=== PATIENT | female | born 2005 | race Caucasian/White ===

== ENCOUNTER 2023-12-08 07:13 | Emergency (ER) | payer MEDICAID ==
[~2023-12-08] VITALS: Ht 160 cm; Wt 54.5 kg
[2023-12-08 07:24] VITALS: TEMP 97.9
[2023-12-08 07:33] LABS: COVID AG,FIA SOURCE NASAL SWAB
[2023-12-08 07:56] LABS: SARS-COV2 (COVID) ANTIGEN,FIA Negative (Negative)
[2023-12-08 07:57] LABS: INFLUENZA TYPE A NEGATIVE FOR TYPE A (NEGATIVE); INFLUENZA TYPE B NEGATIVE FOR TYPE B (NEGATIVE)
[2023-12-08 08:29] LABS: RAPID GROUP A STREP POSITIVE (NEGATIVE)
[2023-12-08] MEDS: DEXAMETHASONE SOD PHOS 4 MG/ML 5 ML VIAL IVP ONE (09:05)
[2023-12-08] MEDS: CefTRIAXone 1 GM/DEXTROSE 50 ML IV ONE (09:06)
[2023-12-08] MEDS: KETOROLAC TROMETHAMINE 30 MG/ML VIAL IVP ONE (09:06)
[2023-12-08] MEDS ORDERED: PENI500T2 PO (11:17)
[2023-12-08 12:12] VITALS: BP 112/62; PULSE 62; RESP 16
== END 2023-12-08 12:14 | disposition home or self-care (01) ==
LOC: EMS 07:15
DX: J36 Peritonsillar abscess (principal); Z20.822 Contact with and (suspected) exposure to COVID-19
CPT/HCPCS: 99284; 96365; 96375; 87426; 87430; 87804; J0696; J1100; J1885